=== PATIENT | female | born 1950 ===

== ENCOUNTER 2022-01-13 15:05 | Emergency (ER) | payer SELFPAY ==
[2022-01-13 15:35] VITALS: BP 120/68; PULSE 71; RESP 18; TEMP 36.2; O2SAT 99
--- NOTE | 2022-01-13 15:35 | ECG_ITS ---
Measurements Intervals [place] Rate: 64 P: 37 NE: 149 QRS: 49 QRSD: 78 T: 42 QT: 400 QTc: 414 Interpretive Statements SINUS RHYTHM BORDERLINE T WAVE ABNORMALITY- ANTERIOR LEADS BASELINE ARTIFACT- I, II, III, AVR, AVL, AVF, V1-V2, V5 BORDERLINE ECG Electronically Signed On 01-13-2022 17:23:07 CDT by Bobby Vickers D.O.
--- NOTE | 2022-01-13 18:02 | PC.NURSE ---
no answer at triage
--- NOTE | 2022-01-13 18:26 | PC.NURSE ---
Not in wr when called for recheck.
== END 2022-01-13 18:26 | disposition left against medical advice (07) ==
LOC: ANHED 18:09
PROVIDERS: Emergency Provider Emergency Medicine
DX: R55 Syncope and collapse (principal)
CPT/HCPCS: 93005; 99199